=== PATIENT | female | born 1970 | race Caucasian/White ===

== ENCOUNTER → 2016-11-13 | Outpatient (CLI) | payer OTHER ==
[~2016-11-13] MED LIST: EFFEXOR-XR37.5 MG PO; FAMVIR250 MG PO; HYDROCODON-ACE1 EAC7 PO; MACROBID100 M1 PO; MEDROL4 MG/DOSE- PO; MOTRIN600 MG PO; VICODIN 5/1 TAB 5/50 PO; VIVELLE-DO1 PATCH.B1 TD; ZOFRAN ODT4 MG PO
--- NOTE | ~2016-11-13 | US85 ---
[facility]. [facility] A Service of [facility] & [facility] RADIOLOGY TEXT RESULTS PATIENT: YURIDIA RASMUSSEN LOCATION: [facility] : 70 UNIT #: [id number] AGE: [address]: Connie Lakhani APRN SEX: F ORDER DR: [id number] [address] [address] [id number] O MR#: [id number] Acc #: [id number] NAME: YURIDIA RASMUSSEN : 1970 SEX: F STUDY DATE/TIME: 11/13/2016 11:37 UNIT: [facility] ROOM: STUDY DESCRIPTION: [facility] Stdy Attending Physician: Connie Lakhani A.P.R.N. Referring Physician: Connie Lakhani A.P.R.N. Ordering Physician: Connie Lakhani A.P.R.N. Primary Care Physician: Agnes Driscoll M.D. MEDICAL IMAGING REPORT This report is preliminary unless electronic signature is present. EXAM Right lower extremity venous duplex scan, 11/13/2016 HISTORY Right leg pain and swelling. FINDINGS High-resolution B-mode imaging and color flow Doppler analysis was performed of the deep and superficial veins of the right lower extremity. All veins are fully compressible with no intraluminal thrombus. Spontaneous and phasic flow is noted in the right common femoral, deep femoral, femoral, and popliteal veins. Flow is demonstrated in the right anterior tibial, posterior tibial, and peroneal veins. IMPRESSION Normal venous examination of the right lower extremity. No deep or superficial vein thrombosis in the right leg. Dictated by... Trevor Glass M.D. THIS IS AN ELECTRONICALLY VERIFIED REPORT Trevor Glass M.D. at 11/17/2016 8:09 AM Rebekah TD: 11/14/2016 09:12 JOB #: [id number] MEDICAL IMAGING REPORT Page 1 of 1
== END | disposition home or self-care (01) ==
LOC: SNIV 11:09
DX: M79.661 Pain in right lower leg (principal); M79.89 Other specified soft tissue disorders
CPT/HCPCS: 93971

== ENCOUNTER → 2016-11-21 | Outpatient (CLI) | payer OTHER ==
--- NOTE | ~2016-11-21 | MR110 ---
[facility] A Service of [facility] & [facility] / [facility] RADIOLOGY TEXT RESULTS PATIENT: YURIDIA RASMUSSEN LOCATION: [facility] : [birth year] UNIT #: [id number] AGE: [address]: Connie Lakhani APRN SEX: F ORDER DR: [id number] [address] [address] [id number] O MR#: [id number] Acc #: [id number] NAME: YURIDIA RASMUSSEN : 1970 SEX: F STUDY DATE/TIME: 11/21/2016 14:49 UNIT: [facility] ROOM: STUDY DESCRIPTION: MR Gonzalez Extrem Wo Cont Rt Attending Physician: Connie Lakhani A.P.R.N. Referring Physician: Connie Lakhani A.P.R.N. Ordering Physician: Connie Lakhani A.P.R.N. Primary Care Physician: Agnes Driscoll M.D. MRI CENTER REPORT This report is preliminary unless electronic signature is present. EXAM MRI of the right lower extremity HISTORY 46-year-old female complains of pain proximal lower leg x2 weeks. Tender to palpation. No known injury. COMPARISON Venous Doppler 10/2016. FINDINGS Multiplanar, multiecho imaging was performed of the right lower leg utilizing a high field magnet and dedicated protocol. Bone structure and alignment appears normal. No focal marrow edema. Lower leg musculature appears normal without evidence of muscle strain. The visualized neurovascular structures appear normal. Small amount of pretibial and prepatellar edema nonspecific. Visualized knee joint unremarkable. There is also a small amount of nonspecific lower extremity edema, primarily within the pretibial and posterior medial soft tissues. IMPRESSION Small amount of lower extremity subcutaneous edema but no confluent edema and no evidence of muscle strain or osseous abnormality. No abnormality identified to account for the patient's pain. Dictated by... Jose Juan Felix M.D. THIS IS AN ELECTRONICALLY VERIFIED REPORT Jose Juan Felix M.D. at 11/24/2016 1:19 PM [facility] A Service of [facility] & [facility] / [facility] RADIOLOGY TEXT RESULTS PATIENT: YURIDIA RASMUSSEN [id number] [birth year] UNIT #: [id number] AGE: [address]: Connie Lakhani APRN SEX: F ORDER DR: TD: 11/24/2016 13:05 JOB #: [id number] MRI CENTER REPORT Page 1 of 1
== END | disposition home or self-care (01) ==
LOC: SMRI 14:23
DX: M79.661 Pain in right lower leg (principal); M79.89 Other specified soft tissue disorders; R60.0 Localized edema
CPT/HCPCS: 73718